=== PATIENT | male | born 1960 | race Caucasian/White ===

== ENCOUNTER 2017-08-30 12:08 | Day surgery (SDC) | payer MEDICARE ==
[2017-08-29 14:33] VITALS: BMI 27.8
[2017-08-30] MEDS ORDERED: PROPOFOL 200 MG/20 ML VIAL ONE (13:08)
[2017-08-30] MEDS ORDERED: Dexamethasone 20 MG/5 ML VIAL ONE (13:08)
[2017-08-30] MEDS ORDERED: Lidocaine 1% PF 5 ML VIAL ONE (13:08)
--- NOTE | 2017-08-30 15:33 | MRI ---
MRI LUMBAR SPINE WITHOUT CONTRAST: COMPARISON: 07/20/16. HISTORY: Bilateral leg and chronic back pain. TECHNIQUE: Multiplanar, multisequence MR images were obtained of the lumbar spine without contrast. FINDINGS: Generalized disk desiccation is seen in the lumbar spine. The conus medullaris terminates normally a t L1. The prevertebral and paraspinal soft tissues are unremarkable. T12-L1: Unremarkable. L1-2: Unremarkable. L2-3: A minimal generalized concentric disk bulge is seen. Mild bilateral posterior facet arthrosis . No central canal stenosis. Mild bilateral neural foraminal stenosis. L3-4: A minimal generalized concentric disk bulge is seen. Mild bilateral posterior disk arthrosis. No central canal stenosis. Mild bilateral neural foraminal stenosis. L4-5: Small disk-osteophyte complex is seen. Mild bilateral posterior facet arthrosis. No central canal stenosis. Moderate bilateral neural foraminal stenosis. L5-S1: Unremarkable. IMPRESSION: Degenerative changes of the lumbar spine as above. POS: CESARIO
== END 2017-08-30 16:30 | disposition home or self-care (01) ==
LOC: SDC/OP 12:08
PROVIDERS: ATTEND Anesthesiology Pain Medicine
DX: M47.27 Other spondylosis with radiculopathy, lumbosacral region (principal); M62.830 Muscle spasm of back; K21.9 Gastro-esophageal reflux disease without esophagitis; Z86.73 Personal history of transient ischemic attack (TIA), and cerebral infarction without residual deficits; Z79.899 Other long term (current) drug therapy
CPT/HCPCS: 72148; J1100; J2001; J2704

== ENCOUNTER 2019-03-06 12:38 | Inpatient (IN) | payer MEDICARE ==
[2019-03-06] MEDS ORDERED: Fentanyl 100 MCG/2 ML VIAL ONE ×4 (13:38→21:59)
--- NOTE | 2019-03-06 14:18 | HP ---
HISTORY OF PRESENT ILLNESS: Mr. Stewart is a 58-year-old man, who presented to [facility] in [place] with a 4-month history of right upper quadrant abdominal pain. He describes the pain as sharp, exacerbated by eating and associated with some nausea. The pain is usually rated at 5/10 to 7/10. Over the last one week, however, the pain has intensified and became more frequent now associated with abdominal bloating, frequent nausea and 2 bouts of nonbilious emesis. The patient denies any fevers or chills. The pain is now rated at 10/10. He denies any change in his bowel habits. 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 PAST SURGICAL HISTORY: Denies any previous surgeries. SOCIAL HISTORY: He is , lives at home with his . He admits to occasional intake of ethanol in moderate amounts. He smokes half pack of cigarettes per day and has done so for over 30 years. He denies any illicit drug abuse. CURRENT MEDICATION: Includes hydrocodone 10 mg p.o. q.6 hours p.r.n. pain. ALLERGIES: THE PATIENT DENIES ANY KNOWN DRUG ALLERGIES. FAMILY HISTORY: Noncontributory for this patient's age. REVIEW OF SYSTEMS: Ten-point review of systems essentially unremarkable except as stated in past medical history and chief complaint. PHYSICAL EXAMINATION: GENERAL: This reveals a 58-year-old normally developed man, who is otherwise coherent and interactive and appears stated age. The patient is alert and oriented x3 appears to be in moderate acute distress secondary to right upper quadrant abdominal pain. VITAL SIGNS: Includes blood pressure 159/68, pulse is 50, respiratory rate is 16, temperature is 98.1 degrees Fahrenheit, oxygen saturation is 99% on room air. HEENT: Reveals normocephalic and atraumatic. His pupils are equal, round, reactive to light and accommodation. Extraocular muscles are intact bilaterally. No scleral icterus is present. Oral mucosa is pink and moist. No lesions are noted. NECK: Supple. No palpable lymphadenopathy or thyromegaly present. HEART: Reveals regular rate and rhythm. No murmurs or gallops auscultated. LUNGS: Clear to auscultation bilaterally. Breathing, regular and nonlabored. ABDOMEN: Soft and nondistended. He has right upper quadrant tenderness to palpation. He has a positive Cardona sign. Liver and spleen otherwise nonpalpable below costal margin. EXTREMITIES: Reveal 2+ radial and pedal pulses bilaterally. No ankle edema is present. NEUROLOGIC: Reveals no focal deficits present. LABORATORY FINDINGS: Today from [place] includes metabolic profile; sodium 135, potassium 4.3, chloride is 102, bicarb is 28, BUN is 6, creatinine is 1.03, glucose is 90, lactic acid is 1.1, total bilirubin 0.6, AST and ALT normal at 19 and 20 respectively. Alkaline phosphatase is also normal at 76. Serum lipase normal at 18 units/L. CBC with 6500 white blood cells. Hemoglobin and hematocrit 16.7 and 47.6 respectively. Platelet count is 256,000. I have personally reviewed the abdominal ultrasound obtained today, which is remarkable for distended markedly thick walled gallbladder with gallbladder wall which measures at 7 mm. There are multiple intraluminal gallstones. There is small pericholecystic fluid present. Common bile duct is markedly dilated for this patient's age at 10 mm in diameter. IMPRESSION: 1. Frjja-[id number] cholecystitis with cholelithiasis. 2. Probable choledocholithiasis. RECOMMENDATIONS: Laparoscopic cholecystectomy with intraoperative cholangiogram. Above findings and recommendations been discussed with the patient and his at bedside. I have advised the patient of the risks and benefits of the proposed surgery to include, but not limited to bleeding, infection, injury to bile duct or surrounding structures. This information provided to the patient in the presence of his nurse. The patient indicates understanding of information given. I have answered all his questions. The patient has granted consent for his admission and surgical intervention. Job ID: [id number]
[2019-03-06] MEDS ORDERED: Morphine 4 MG/ML VIAL ONE (17:46)
[2019-03-06] MEDS ORDERED: Piperacillin/Tazobactam 3.375 GM VIAL ONE (19:39)
[2019-03-06] MEDS ORDERED: Sodium Chloride 0.9% 100 ML ONE (19:39)
[2019-03-06] MEDS ORDERED: Iothalamate Meglumine 60% 50 ML VIAL FS ONE (20:06)
[2019-03-06] MEDS ORDERED: Bupivacaine/Epinephrine 0.25% 30 ML VIAL ONE (20:06)
[2019-03-06] MEDS ORDERED: Morphine 2 MG/ML SYRINGE ONE (20:12)
[2019-03-06] MEDS ORDERED: Midazolam HCl 2 mg/2 ml Vial ONE (20:43)
--- NOTE | 2019-03-06 22:06 | RAD ---
Intraoperative cholangiogram CLINICAL HISTORY: ERCP FINDINGS: ERCP fluoroscopic imaging, intraoperative, performed which reveals contrast opacified commo n duct and partially imaged intrapelvic biliary ductal branches. No persistent focal filling defect is identified. Contrast is seen within bowel. IMPRESSION: Intraoperative imaging performed during ERCP. Correlate with intraoperative assessment. Transcribed Date/Time: 03/06/2019 10:13 PM
[2019-03-06] MEDS ORDERED: HYDROmorphone 2 MG/ML VIAL ONE (22:43)
[2019-03-06] MEDS ORDERED: Morphine 2 MG/ML SYRINGE SLOW IVP PRN (22:47)
[2019-03-06] MEDS ORDERED: Morphine 4 MG/ML VIAL SLOW IVP PRN (22:48)
[2019-03-06] MEDS ORDERED: HYDROcodone/Acetaminophen 10/325 mg Tablet PO PRN ×2 (22:49→22:50)
[2019-03-06] MEDS ORDERED: Ondansetron PF 4 MG/2 ML Vial SLOW IVP PRN (22:50)
[2019-03-06] MEDS ORDERED: Ondansetron PF 4 MG/2 ML Vial IVP PRN (23:14)
[2019-03-06] MEDS ORDERED: Promethazine HCl 25 MG/ML VIAL IM PRN (23:14)
[2019-03-06] MEDS ORDERED: Naloxone HCl 0.4 mg/ml Vial IV PRN (23:14)
[2019-03-06] MEDS ORDERED: diphenhydrAMINE 25 MG CAP PO PRN (23:14)
[2019-03-06] MEDS ORDERED: Zolpidem Tartrate 5 MG TAB PO PRN (23:14)
[2019-03-06] MEDS ORDERED: diphenhydrAMINE 50 MG/ML VIAL IM/IV PRN (23:14)
[2019-03-06] MEDS ORDERED: HYDROmorphone 10 mg/100 ml CADD IV PRN (23:14)
[2019-03-06] MEDS ORDERED: HYDROmorphone 0.5 MG/0.5 ML SYRINGE ONE ×2 (23:36→23:55)
[2019-03-07 01:24] VITALS: BMI 26.2
[2019-03-07] MEDS: Piperacillin/Tazobactam 3.375 GM in Sodium Chloride 0.9% 100 ML IVPB SCH ×2 (02:23→08:32)
[2019-03-07] MEDS: Sodium Chloride 0.9% 1,000 ML IV SCH ×2 (02:24→08:38)
[2019-03-07] MEDS ORDERED: Acetaminophen 1,000 MG in Premix Bag 1 BAG IVPB SCH (05:45)
[2019-03-07] MEDS ORDERED: Ketorolac Tromethamine 30 MG/ML VIAL IVP SCH (05:45)
[2019-03-07 05:46] LABS: ALT (SGPT) 18 U/L (8-55); AST (SGOT) 25 U/L (5-34); Albumin 3.8 g/dL (3.5-5.0); Alkaline Phosphatase 62 U/L (40-110); Anion Gap 15 mmol/L (10-20); BUN (Urea Nitrogen) 8 mg/dL (8.4-25.7); Bilirubin, Total 0.6 mg/dL (0.2-1.2); Calc. Creatinine Clearance 95 mL/min (70-130); Calcium 8.6 mg/dL (7.8-10.44); Carbon Dioxide 22 mmol/L (22-29); Chloride 106 mmol/L (98-107); Estimated GFR-MDRD 78; Globulin 2.6 g/dL (2.4-3.5); Glucose 81 mg/dL (70-105); Potassium 4.7 mmol/L (3.5-5.1); Protein, Total 6.4 g/dL (6.0-8.3); Sodium 138 mmol/L (136-145)
[2019-03-07 05:49] LABS: #Lymphocytes 2.7 thou/uL (1.20-3.40); #Monocytes 0.5 thou/uL (0.11-0.59); %Basophils 0.2 % (0.0-1.0); %Eosinophils 0.2 % (0.0-10.0); %Lymphocytes 29.2 % (21.0-51.0); %Monocytes 5.5 % (0.0-10.0); %Neutrophils 64.9 % (42.0-75.0); Hemoglobin 14.9 g/dL (14.0-18.0); MDiff Complete? YES; Macrocytosis SLIGHT = 6-15 cells (100X) (0-5/hpf); Mean Corpuscular HGB CONC 34.7 g/dL (32.0-36.0); Mean Corpuscular Hemoglobin 36.9 pg (27.0-31.0); Mean Platelet Volume 7.1 fL (7.4-10.4); Platelet Count 231 thou/uL (130-400); RBC Distribution Width 12.6 % (11.5-14.5); Red Blood Cell (RBC) Count 4.04 mill/uL (4.70-6.10); White Blood Cell (WBC) Count 9.3 thou/uL (4.8-10.8)
[2019-03-07 08:03] VITALS: TEMP 98.2
[2019-03-07] MEDS ORDERED: Prevnar 13-Val Conj/PF 0.5 ML SYRINGE IM ONE (09:00)
[2019-03-07] MEDS ORDERED: FLU VACC QS2019-20(6MOS UP)/PF 60 MCG/0.5 ML SYRINGE IM ONE (09:00)
[2019-03-07 11:19] VITALS: BP 168/86
--- NOTE | 2019-03-08 12:26 | PDOC.OP ---
Operative Note - Operative Note Operative Note: DATE OF PROCEDURE: PROCEDURES: Laparoscopic cholecystectomy with intraoperative cholangiogram. SURGEON: Cece Dunn M.D. RETAIL STORE ASSOCIATE: Kolby Espana MS 3 PREOPERATIVE DIAGNOSIS: Cholelithiasis and cholecystitis POSTOPERATIVE DIAGNOSIS: Cholelithiasis and cholecystitis FINDINGS: Very thickened chronically dilated white walled gallbladder with multiple stones. Small cystic duct connecting to a dilated common bile duct. Normal intraoperative cholangiogram without lucency or obstruction. HISTORY: Patient with signs and symptoms of biliary colic. Laparoscopic cholecystectomy was recommended for symptomatic relief and prevention of future episodes. Intraoperative cholangiogram was also recommended due to dilated common bile duct on ultrasound. PROCEDURE: After informed consent was obtained and appropriate preoperative antibiotics were administered, the patient was taken to the operating room and placed in the supine position and general endotracheal anesthesia was administered. The stomach was decompressed with an OG tube and the abdomen was prepped and draped in standard sterile fashion. Local anesthesia was infused to the skin and subcutaneous tissues at the umbilical level. A transverse skin incision was made. The fascia was elevated and a Veress needle was placed into the abdominal cavity without difficulty. Opening pressure was less than 5 and carbon dioxide gas easily insufflated to an intra-abdominal pressure of 15, which the patient tolerated well. The Veress needle was withdrawn and a Powell port advanced under direct vision. The abdominal cavity was carefully examined. There was no evidence of Veress needle or of trocar injury. Local anesthesia was infused to the skin and subcutaneous tissues at the epigastric, right upper quadrant, and right lateral abdominal sites and trocars were placed under direct vision of the laparoscope. The fundus of the gallbladder was grasped and retracted superiorly with some difficulty due to the very thickened nature of the gallbladder wall. The infundibulum was grasped and retracted laterally. The serosa was stripped inferiorly at the level of the neck of the gallbladder exposing the cystic duct and artery which were traced clearly to their insertion in the gallbladder. These were dissected free circumferentially and the cystic duct was clipped at the level of the neck of the gallbladder. An incision was made in the cystic duct inferior to the clip and the cystic duct was palpated with no stones palpable. Clear bile was seen to flow from the cystic duct incision. A cholangiogram catheter was introduced and placed into the cystic duct and secured with a clip. A cholangiogram was obtained which showed an adequate length of cystic duct. There was normal filling of the common bile duct with free flow of contrast into the duodenum. There was normal retrograde flow into the common hepatic duct beyond the level of the bifurcation without filling defects. The cholangiogram catheter was removed and the cystic duct clipped below the incision in the cystic duct. The cystic duct was divided between these clips and the previously placed clip. The cystic artery was dissected free, clipped and divided between the clips. The gallbladder was then dissected free of the gallbladder bed using hook electrocautery. Prior to complete removal of the gallbladder from the gallbladder bed, the area of the cystic duct and artery stumps was examined. The clips were in good position completely across these structures and there was no bleeding and no leakage of bile. The gallbladder was then placed into an EndoCatch bag and drawn out through the epigastric incision, after crushing and removing multiple stones. Even after removal of the stones, the gallbladder wall was so thick that the skin incision had to be extended somewhat to allow removal. The epigastric trocar was replaced and the operative site easily irrigated to clear. There was no significant bleeding or spillage of bile. The epigastric trocar was removed and the fascia closed under direct laparoscopic vision with a 0 Vicryl suture on a GraNee needle in a [id number] manner with excellent technical result. The right upper quadrant and right lateral abdominal trocars were removed and hemostasis verified. Carbon dioxide gas was allowed to desufflate through the umbilical trocar which was then removed. The skin incisions were closed with 4-0 subcuticular Monocryl sutures and Dermabond dressings were placed. The patient was extubated and taken to the recovery room in good condition. There were no complications. ESTIMATED BLOOD LOSS: Minimal. SPECIMEN : Gallbladder and contents.
--- NOTE | 2019-03-08 17:34 | OP ---
DATE OF PROCEDURE: 03/06/2019 PREOPERATIVE DIAGNOSES: 1. Acute cholecystitis and cholelithiasis. OPERATION PERFORMED: Laparoscopic cholecystectomy with intraoperative cholangiogram. ANESTHESIA: General endotracheal. ESTIMATED BLOOD LOSS: Less than 20 mL. COUNTS: Sponge and instrument counts were verified as correct x2. COMPLICATIONS: None apparent at the time of operation. INDICATIONS FOR OPERATION: A 58-year-old man presented with recurrent epigastric and right upper quadrant abdominal pain. Clinical and radiographic examination were consistent with acute cholecystitis and cholelithiasis. Dilated common bile duct was also diagnosed. The patient was experiencing resolving abdominal pain. Serum lipase was normal. The patient was brought to the operating room for laparoscopic cholecystectomy with intraoperative cholangiogram. The findings are consistent with markedly dilated gallbladder in the usual anatomic location, partially encased by omental adhesions. Cholangiography also revealed normal ductal anatomy with no filling defects. DESCRIPTION OF PROCEDURE: Informed consent was obtained from the patient and was brought to the operating room and placed in supine position. Following general anesthesia, abdomen was sterilely prepped and draped in usual fashion. The skin below the umbilicus was infiltrated with 0.25% Marcaine with epinephrine. A small curvilinear infraumbilical incision was made using an 11 scalpel. Umbilical stalk was grasped with Scar and elevated. Veress needle was inserted through the incision and placed in the peritoneal cavity, through which the abdomen was insufflated with 3 L of CO2 gas. Intraabdominal pressure noted at 1 mmHg. Following abdominal insufflation, Veress needle was removed and a 5-mm trocar introduced using a Visiport under laparoscopy. Laparoscopy confirmed proper placement. No injuries to underlying structures. Additionally, laparoscopy reveals the right upper quadrant partially obscured by omental adhesions. Under direct laparoscopy, 12-mm epigastric and two 5-mm right lateral subcostal ports were placed after the overlying skin were infiltrated with 0.25% Marcaine with epinephrine and appropriate incision was made. The patient was placed in a reverse Trendelenburg position, rotated to his left. I introduced a Prestige grasper through the right lateral subcostal port, grasping the fundus of the gallbladder, which was elevated cephalad. Omental adhesions were taken down from the remainder of the gallbladder. Second Prestige grasper was introduced through the right medial subcostal port, grasping the Gene's pouch, which was retracted laterally. The cystic duct was carefully dissected free from surrounding structures. I applied one clip at the junction of the cystic duct and gallbladder. A cystotomy was made proximal to securing clip using Endo Shear. Cholangiocatheter introduced through the right upper quadrant and was inserted into the cystic ductal lumen and secured with a single clip. Using Conray contrast, cholangiogram was achieved under fluoroscopy, revealing no filling defects. Following the normal cholangiogram, securing clip was removed and the cystic duct was divided between clips, applying 2 clips proximally. Cystic artery dissected free from surrounding structures and divided between clips in a similar fashion. The gallbladder itself was removed from the liver bed using cautery. The gallbladder was delivered of the abdominal cavity using an EndoCatch. Operative site was inspected for good hemostasis. Finding no other pathology, laparoscopy was terminated. Fascia of the epigastric port closed using 0 Vicryl suture and Endo Closure device on the laparoscopy. The abdomen was desufflated. All ports and instruments removed and accounted for. Skin incision was closed using 4-0 Monocryl suture in subcuticular fashion. Dermabond was applied over incisional closure. The patient tolerated this operation without any apparent complication and was returned to recovery room in satisfactory condition. Job ID: [id number] [facility]
--- NOTE | 2019-03-09 08:43 | PQF ---
KRANTHI EMERY [id number] CLINICAL DOCUMENTATION CLARIFICATION FORM: POST DISCHARGE Addendum to original discharge summary date: ____ Late entry note date: __ DATE:03/09/2019 ATTN:KRANTHI FARRIS Please exercise your independent, professional judgment in responding to the clarification form. Clinical indicators are provided on the bottom of this form for your review Please check appropriate box(s): [ ] Gallstone pancreatitis is treated during this admission [ ] Gallstone pancreatitis is already treated before the admission [ ] Other diagnosis [ x ] Unable to determine For continuity of documentation, please document condition throughout progress notes and discharge summary. Thank You. CLINICAL INDICATORS - SIGNS / SYMPTOMS / LABS Right upper quadrant abdominal pain-Documented in H&P on 03/06 by kranthi Farris DO Nausea-Documented in H&P on 03/06 by kranthi Farris DO Serum lipase normal at 18 units/L-Documented in H&P on 03/06 by kranthi Farris DO [id number] cholecystitis with cholelithiasis-Documented in H&P on 03/06 by kranthi Farris DO Resolved gallstone pancreatitis-Documented in OP note on 03/06 by kranthi Farris DO Gallstone pancreatitis was also diagnosed.The patient was experiencing resolving abdominal pain-kranthi Farris DO [employer]ISK [employer]CTORS Cholelithiasis and cholecystitis-Documented in OP note on 03/07 by Cece nelson MD TREATMENT: Laparoscopic cholecystectomy with intraoperative cholangiogram-Documented in OP note on 03/07 by Cece nelson MD Morphine 4mg IV-Documented in Medication snapshot on 03/06 [employer] Win[employer] (This form is maintained as a part of the permanent medical record) 2014 [employer]. All Rights Reserved [email or web address] [not provided] CHERYLED
--- NOTE | 2019-03-12 22:46 | EKG ---
Test Reason : Blood Pressure : / mmHG Vent. Rate : 045 BPM Atrial Rate : 045 BPM P-R Int : 166 ms QRS Dur : 086 ms QT Int : 474 ms P-R-T Axes : 058 008 058 degrees QTc Int : 410 ms Sinus bradycardia Otherwise normal ECG When compared with ECG of 20-JUL-2016 16:11, No significant change was found Confirmed by SONALI ALBA M.D. ([id number]) on 03/12/2019 10:46:46 PM Referred By: JOSH Confirmed By:SONALI ALBA M.D.
== END 2019-03-07 13:16 | disposition home or self-care (01) | DRG 419 ==
LOC: ERS 12:38 → SDC 19:05 → SURG A 22:35
PROVIDERS: ADMIT Surgery; ATTEND Surgery
PROC: 0FT44ZZ Resection of Gallbladder, Percutaneous Endoscopic Approach (ICD-10-PCS; principal; 2019-03-07)
PROC: BF131ZZ Fluoroscopy of Gallbladder and Bile Ducts using Low Osmolar Contrast (ICD-10-PCS; 2019-03-07)
DX: K80.12 Calculus of gallbladder with acute and chronic cholecystitis without obstruction (principal); K82.8 Other specified diseases of gallbladder; M47.9 Spondylosis, unspecified; F17.210 Nicotine dependence, cigarettes, uncomplicated; Z86.73 Personal history of transient ischemic attack (TIA), and cerebral infarction without residual deficits
CPT/HCPCS: 36415; 47532; 80053; 85025; 88304; 93005; 93010; 96374; 96375; 96376; J0131; J1170; J1610; J1885; J2250; J2270; J2543; J3010; J3490

== ENCOUNTER 2019-05-21 12:07 | Day surgery (SDC) | payer MEDICARE ==
[2019-05-18 10:03] VITALS: BMI 25.8
[~2019-05-21 12:07] MED LIST: Lidocaine 1% PF 5 ML VIAL ONE; PHENYLEPHRINE-NS 100 MCG/ML 10 ML SYRINGE ONE; PROPOFOL 200 MG/20 ML VIAL ONE
[2019-05-21] MEDS ORDERED: Midazolam HCl 2 mg/2 ml Vial ONE (13:51)
--- NOTE | 2019-05-21 14:54 | MRI ---
MRI Lumbar Spine Noncontrast: HISTORY: Chronic lower back pain. History of nerve ablations. COMPARISON: 08/30/2017 FINDINGS: Tiny 5 mm increased T2-weighted signal intensity focus is seen in the midportion left kidney which is too small to characterize but statistically likely represents a very tiny cyst. Conus medullaris is normal in morphology and terminates at the L1 level. Paravertebral soft tissues have a normal MRI appearance. L1-2: There is no disc bulge or disc herniation. Central spinal canal and neural foramina are patent. L2-3: Minimal disc osteophyte complex and facet hypertrophic changes are noted. There is no significa nt central canal or neural foraminal narrowing. L3-4: Facet hypertrophic changes are noted with a minimal disc osteophyte complex present. Mild right -sided neural foraminal narrowing is present. The left neural foramen and central canal are patent. There is mild encroachment on the exited right L3 III nerve root laterally due to disc bulge. L4-5: Minimal disc osteophyte complex and facet hypertrophic changes are noted. Mild bilateral neural foraminal narrowing is present greater on the right. The central canal is patent. L5-S1: There is no disc bulge or disc herniation. Central spinal canal and neural foramina are patent . There are facet hypertrophic changes noted. IMPRESSION: Mild degenerative changes in lumbar spine without high-grade central canal or neural foraminal narrow ing at any level. MRI lumbar spine is overall stable compared to the prior study in 2018. There is encroachment on the right L3 nerve root laterally due to lateral disc bulge.
== END 2019-05-21 15:45 | disposition home or self-care (01) ==
LOC: SDC/OP 12:07
PROVIDERS: ATTEND Anesthesiology Pain Medicine
DX: M47.816 Spondylosis without myelopathy or radiculopathy, lumbar region (principal)
CPT/HCPCS: 72148; J2001; J2250; J2704

== ENCOUNTER 2020-05-09 14:08 | Outpatient (CLI) | payer MEDICARE ==
[2020-05-10 02:09] LABS: SARS-CoV-2 MS2 Positive; SARS-CoV-2 N Gene Negative; SARS-CoV-2 S Gene Negative; SARS-CoV-2 by NAA Not Detected (NotDetected); SARS-CoV-2 orf1ab Negative
== END 2020-05-09 14:09 | disposition home or self-care (01) ==
LOC: LABBT 14:08
PROVIDERS: ATTEND Anesthesiology
DX: Z01.812 Encounter for preprocedural laboratory examination (principal); Z20.828 Contact with and (suspected) exposure to other viral communicable diseases
CPT/HCPCS: 87635; U0003

== ENCOUNTER 2020-05-12 11:04 | Day surgery (SDC) | payer MEDICARE, MEDICAID ==
[2020-05-09 10:53] VITALS: BMI 25.8
[~2020-05-12 11:04] MED LIST changes: -PHENYLEPHRINE-NS 100 MCG/ML 10 ML SYRINGE ONE; -PROPOFOL 200 MG/20 ML VIAL ONE
[2020-05-12] MEDS ORDERED: PROPOFOL 60 ML ONE (11:56)
--- NOTE | 2020-05-12 12:38 | MRI ---
EXAM: MRI Lumbar Spine WO Con PROVIDED CLINICAL HISTORY: Spondylosis COMPARISON: None FINDINGS: 5 lumbar vertebral bodies are assumed. Lumbar alignment appears normal. Vertebral body heights appear preserved. Mild diffuse disc desiccation without loss of disc space height. The conus medullaris is normal in signal and terminates at an appropriate level. The visualized extraspinal soft tissues a ppear unremarkable. L1-L2: No significant canal or foraminal narrowing apparent. L2-L3: No significant canal or foraminal narrowing apparent. L3-L4: Broad disc bulge and bilateral mild facet arthrosis. Mild bilateral foraminal narrowing. No significa nt canal stenosis apparent. L4-L5: Broad-based disc bulge and bilateral facet arthrosis. There is no significant canal stenosis apparent . There is mild left and mild-moderate right foraminal narrowing. L5-S1: Bilateral facet arthrosis. No significant canal or foraminal narrowing apparent. IMPRESSION: Lumbar disc and facet degenerative change as described.
== END 2020-05-12 13:25 | disposition home or self-care (01) ==
LOC: MRI 11:04
PROVIDERS: ATTEND Anesthesiology
DX: M47.27 Other spondylosis with radiculopathy, lumbosacral region (principal); M47.816 Spondylosis without myelopathy or radiculopathy, lumbar region; M51.36 Other intervertebral disc degeneration, lumbar region; M99.33 Osseous stenosis of neural canal of lumbar region; G89.4 Chronic pain syndrome; F41.9 Anxiety disorder, unspecified; K21.9 Gastro-esophageal reflux disease without esophagitis; G47.00 Insomnia, unspecified; M19.90 Unspecified osteoarthritis, unspecified site; M79.7 Fibromyalgia; F17.210 Nicotine dependence, cigarettes, uncomplicated; Z86.73 Personal history of transient ischemic attack (TIA), and cerebral infarction without residual deficits; Z79.891 Long term (current) use of opiate analgesic
CPT/HCPCS: 72148; J2704

== ENCOUNTER 2020-11-28 13:58 | Outpatient (CLI) | payer MEDICARE, MEDICAID ==
[2020-11-28 16:38] LABS: #Basophils 0.1 10x3/uL (0.0-0.2); #Monocytes 0.6 10x3/uL (0.0-1.1); #Neutrophils 3.6 10x3/uL (1.5-8.4); %Basophils 0.9 % (0.0-2.0); %Monocytes 6.8 % (0.0-10.0); %Neutrophils 45.1 % (40.0-75.0); Hemoglobin 13.8 g/dL (13.5-17.5); Mean Corpuscular HGB CONC 34.4 g/dL (32.0-36.0); Mean Corpuscular Hemoglobin 34.3 pg (27.0-33.0); Mean Corpuscular Volume 99.8 fl (81.2-95.1); Mean Platelet Volume 9.5 fl (7.4-10.4); Platelet Count 306 10x3/uL (150-450); RBC Distribution Width 13.7 % (11.5-14.5); Red Blood Cell (RBC) Count 4.02 10x6/uL (4.32-5.72); White Blood Cell (WBC) Count 8.1 10x3/uL (3.5-10.5)
[2020-11-28 16:56] LABS: Anion Gap 14 mmol/L (10-20); BUN (Urea Nitrogen) 10 mg/dL (8.4-25.7); Calc. Creatinine Clearance 0 mL/min (70-130); Calcium 9.2 mg/dL (7.8-10.44); Carbon Dioxide 25 mmol/L (22-29); Chloride 103 mmol/L (98-107); Glucose 86 mg/dL (70-105); Potassium 4.5 mmol/L (3.5-5.1); Sodium 137 mmol/L (136-145)
== END 2020-11-28 13:59 | disposition home or self-care (01) ==
LOC: LABBT 13:58
PROVIDERS: ATTEND Neurological Surgery
DX: Z01.818 Encounter for other preprocedural examination (principal); M54.16 Radiculopathy, lumbar region
CPT/HCPCS: 80048; 85025; 93005; 93010

== ENCOUNTER 2021-02-17 12:43 | Outpatient (CLI) | payer MEDICARE, MEDICAID | END 2021-02-17 12:44 | disposition home or self-care (01) | LOC: TBSIIMAG 12:43 | PROVIDERS: ATTEND Neurological Surgery | DX: M54.5 Low back pain (principal); Z98.890 Other specified postprocedural states | CPT/HCPCS: 72100 ==

== ENCOUNTER 2021-02-25 13:15 | Outpatient (CLI) | payer MEDICARE, MEDICAID ==
[2021-02-26 01:46] LABS: SARS-CoV-2 PCR by NAA Not Detected (NotDetected)
== END 2021-02-25 13:16 | disposition home or self-care (01) ==
LOC: LABBT 13:15
PROVIDERS: ATTEND Neurological Surgery
DX: Z01.812 Encounter for preprocedural laboratory examination (principal); M54.16 Radiculopathy, lumbar region; Z20.822 Contact with and (suspected) exposure to COVID-19
CPT/HCPCS: U0003; U0005

== ENCOUNTER 2021-03-02 11:37 | Day surgery (SDC) | payer MEDICARE, MEDICAID ==
[2021-03-02] MEDS ORDERED: Fentanyl 100 MCG/2 ML VIAL ONE ×2 (12:59→14:58)
[2021-03-02] MEDS ORDERED: Midazolam HCl 2 mg/2 ml Vial ONE (12:59)
[2021-03-02 13:10] LABS: Calc. Creatinine Clearance 0 mL/min (70-130)
[2021-03-02] MEDS ORDERED: PROPOFOL 200 MG/20 ML VIAL ONE (13:45)
[2021-03-02] MEDS ORDERED: Glycopyrrolate 0.2 MG/ML 5 ML SYRINGE ONE (13:45)
[2021-03-02] MEDS ORDERED: Rocuronium Bromide 10 MG/ML (10ML VIAL) ONE (13:45)
[2021-03-02] MEDS ORDERED: Dexamethasone 20 MG/5 ML VIAL ONE (13:45)
[2021-03-02] MEDS ORDERED: Ondansetron PF 4 MG/2 ML Vial ONE (13:45)
[2021-03-02] MEDS ORDERED: Ketorolac Tromethamine 30 MG/ML VIAL ONE (13:45)
[2021-03-02] MEDS ORDERED: Lidocaine 1% PF 5 ML VIAL ONE (13:45)
== END 2021-03-02 16:30 | disposition home or self-care (01) ==
LOC: RAD 11:37
PROVIDERS: ATTEND Neurological Surgery
PROC: B02B1ZZ Computerized Tomography (CT Scan) of Spinal Cord using Low Osmolar Contrast (ICD-10-PCS; principal; 2021-03-02)
DX: M47.26 Other spondylosis with radiculopathy, lumbar region (principal); M51.16 Intervertebral disc disorders with radiculopathy, lumbar region; T84.226A Displacement of internal fixation device of vertebrae, initial encounter; M48.061 Spinal stenosis, lumbar region without neurogenic claudication; M47.817 Spondylosis without myelopathy or radiculopathy, lumbosacral region; M48.07 Spinal stenosis, lumbosacral region; Z98.1 Arthrodesis status
CPT/HCPCS: 36415; 62304; 72132; 82565; J1100; J1885; J2250; J2405; J2704; J3010

== ENCOUNTER 2021-03-27 13:54 | Outpatient (CLI) | payer MEDICARE, MEDICAID ==
[2021-03-27 15:54] LABS: Hemoglobin 15.5 g/dL (13.5-17.5); Mean Corpuscular HGB CONC 34.8 g/dL (32.0-36.0); Mean Corpuscular Hemoglobin 34.6 pg (27.0-33.0); Mean Corpuscular Volume 99.6 fl (81.2-95.1); Mean Platelet Volume 9.2 fl (7.4-10.4); Platelet Count 327 10x3/uL (150-450); RBC Distribution Width 14.6 % (11.5-14.5); Red Blood Cell (RBC) Count 4.48 10x6/uL (4.32-5.72); White Blood Cell (WBC) Count 8.3 10x3/uL (3.5-10.5)
[2021-03-27 16:15] LABS: Anion Gap 15 mmol/L (10-20); BUN (Urea Nitrogen) 7 mg/dL (8.4-25.7); Calc. Creatinine Clearance 0 mL/min (70-130); Calcium 9.2 mg/dL (7.8-10.44); Carbon Dioxide 22 mmol/L (22-29); Chloride 103 mmol/L (98-107); Glucose 73 mg/dL (70-105); Potassium 4.4 mmol/L (3.5-5.1); Sodium 136 mmol/L (136-145)
[2021-03-28 00:10] LABS: SARS-CoV-2 PCR by NAA Not Detected (NotDetected)
== END 2021-03-27 13:55 | disposition home or self-care (01) ==
LOC: LABBT 13:54
PROVIDERS: ATTEND Neurological Surgery
DX: Z01.818 Encounter for other preprocedural examination (principal); M54.16 Radiculopathy, lumbar region; Z20.822 Contact with and (suspected) exposure to COVID-19
CPT/HCPCS: 80048; 85027; U0003; U0005; 93005; 93010

== ENCOUNTER 2021-03-30 08:07 | Day surgery (SDC) | payer MEDICARE, MEDICAID ==
[2021-03-27 12:15] VITALS: BMI 25.1
[2021-03-30] MEDS ORDERED: ceFAZolin Sodium (SDC) 2 GM/100 ML BAG ONE (08:28)
[2021-03-30] MEDS ORDERED: Fentanyl 100 MCG/2 ML VIAL ONE ×4 (08:58→14:30)
[2021-03-30] MEDS ORDERED: Midazolam HCl 2 mg/2 ml Vial ONE ×2 (10:14→13:07)
[2021-03-30] MEDS ORDERED: Fentanyl 250 MCG/5 ML VIAL ONE (11:15)
[2021-03-30] MEDS ORDERED: Glycopyrrolate 0.2 MG/ML 5 ML SYRINGE ONE (11:33)
[2021-03-30] MEDS ORDERED: diphenhydrAMINE 50 MG/ML VIAL ONE (11:33)
[2021-03-30] MEDS ORDERED: PHENYLEPHRINE-NS 100 MCG/ML 10 ML SYRINGE ONE (11:33)
[2021-03-30] MEDS ORDERED: Ondansetron PF 4 MG/2 ML Vial ONE (11:33)
[2021-03-30] MEDS ORDERED: PROPOFOL 200 MG/20 ML VIAL ONE (11:33)
[2021-03-30] MEDS ORDERED: Lidocaine 1% PF 5 ML VIAL ONE (11:33)
[2021-03-30] MEDS ORDERED: Rocuronium Bromide 10 MG/ML (10ML VIAL) ONE (11:33)
[2021-03-30] MEDS ORDERED: Labetalol HCl 100 MG/20 ML VIAL ONE (11:33)
[2021-03-30] MEDS ORDERED: Dexamethasone 20 MG/5 ML VIAL ONE (11:33)
[2021-03-30] MEDS ORDERED: hydrALAZINE 20 MG/ML VIAL ONE (13:10)
[2021-03-30] MEDS ORDERED: HYDROmorphone 2 MG/ML VIAL ONE (13:24)
[2021-03-30] MEDS ORDERED: PACU-Morphine 4MG/ML VIAL SLOW IVP PRN (13:43)
[2021-03-30] MEDS ORDERED: Promethazine HCl 25 MG/ML VIAL IM PRN ×2 (13:43→16:15)
[2021-03-30] MEDS ORDERED: Promethazine HCl 25 MG/ML VIAL IVPB PRN (13:43)
[2021-03-30] MEDS ORDERED: Morphine Sulfate 2 MG/ML SYRINGE SLOW IVP PRN (13:43)
[2021-03-30] MEDS ORDERED: Ondansetron HCl/PF 4 MG/2 ML Vial IVP PRN (13:43)
[2021-03-30] MEDS ORDERED: HYDROmorphone 2 MG/ML VIAL SLOW IVP PRN (13:43)
[2021-03-30] MEDS ORDERED: HYDROmorphone 0.5 MG/0.5 ML SYRINGE ONE (14:15)
[2021-03-30] MEDS ORDERED: Promethazine HCl 25 MG/ML VIAL ONE (14:34)
[2021-03-30] MEDS ORDERED: Ondansetron PF 4 MG/2 ML Vial SLOW IVP PRN (16:05)
[2021-03-30] MEDS ORDERED: HYDROcodone/Acetaminophen 10/325 mg Tablet PO PRN (16:15)
[2021-03-30] MEDS ORDERED: Mag-Al 1200 mg/1200 mg/30 ML UDCUP PO PRN (16:15)
[2021-03-30] MEDS ORDERED: traMADol HCl 50 MG TAB PO PRN ×2 (16:15)
[2021-03-30] MEDS ORDERED: Morphine 2 MG/ML VIAL SLOW IVP PRN (16:15)
[2021-03-30] MEDS ORDERED: Promethazine 25 MG TAB PO PRN (16:15)
[2021-03-30] MEDS ORDERED: Milk Of Magnesia 30 ML UDCUP PO PRN (16:15)
[2021-03-30] MEDS ORDERED: diphenhydrAMINE 50 MG/ML VIAL IVP PRN (16:15)
[2021-03-30] MEDS ORDERED: diphenhydrAMINE 25 MG CAP PO PRN (16:15)
[2021-03-30] MEDS ORDERED: Promethazine HCl 12.5 MG SUPP PR PRN (16:15)
[2021-03-30] MEDS ORDERED: Morphine 4 MG/ML VIAL SLOW IVP PRN (16:30)
[2021-03-30] MEDS: HYDROcodone/Acetaminophen 10/325 mg Tablet PO PRN (16:32)
[2021-03-30] MEDS: Morphine 4 MG/ML VIAL SLOW IVP PRN ×4 (16:36→23:34)
[2021-03-30] MEDS: Sodium Chloride 0.9% 1,000 ML IV SCH (16:49)
[2021-03-30] MEDS: tiZANidine HCl 4 MG TAB PO PRN (19:26)
[2021-03-30] MEDS: CEFAZOLIN 2 GM in Sodium Chloride 0.9% 100 ML IVPB SCH (20:47)
[2021-03-31] MEDS: Sodium Chloride 0.9% 1,000 ML IV SCH (03:44)
[2021-03-31] MEDS: Morphine 4 MG/ML VIAL SLOW IVP PRN ×3 (03:45→07:32)
[2021-03-31] MEDS: CEFAZOLIN 2 GM in Sodium Chloride 0.9% 100 ML IVPB SCH (04:05)
[2021-03-31] MEDS: tiZANidine HCl 4 MG TAB PO PRN (05:34)
[2021-03-31] MEDS ORDERED: Tamsulosin HCl 0.4 MG CAP PO SCH (06:00)
[2021-03-31] MEDS ORDERED: Mag-Al 1200 mg/1200 mg/30 ML UDCUP PO SCH (06:30)
[2021-03-31 08:01] VITALS: BP 116/65; TEMP 98.9
[2021-03-31] MEDS: HYDROcodone/Acetaminophen 10/325 mg Tablet PO PRN (09:00)
[2021-03-31] MEDS ORDERED: FLU VACC QS2021-22(6MOS UP)/PF 60 MCG/0.5 ML SYRINGE IM ONE (09:00)
== END 2021-03-31 09:47 | disposition home or self-care (01) ==
LOC: SDC 08:07 → T4-A 13:57 → SDC 03-31 09:47
PROVIDERS: ATTEND Neurological Surgery
PROC: 0QJY0ZZ Inspection of Lower Bone, Open Approach (ICD-10-PCS; principal; 2021-03-30)
PROC: 0SG10K1 Fusion of 2 or more Lumbar Vertebral Joints with Nonautologous Tissue Substitute, Posterior Approach, Posterior Column, Open Approach (ICD-10-PCS; 2021-03-30)
DX: M54.16 Radiculopathy, lumbar region (principal); T84.226A Displacement of internal fixation device of vertebrae, initial encounter; F17.200 Nicotine dependence, unspecified, uncomplicated; Z79.899 Other long term (current) drug therapy; Y79.1 Therapeutic (nonsurgical) and rehabilitative orthopedic devices associated with adverse incidents
CPT/HCPCS: 20930; 22612; 22614; 22830; 22842; 76000; C1713 ×3; J0360; J0690; J1100; J1170; J1200; J2250; J2270; J2405; J2550; J2704; J3010; J3370; J3490; J7050

== ENCOUNTER 2021-04-14 10:27 | Outpatient (CLI) | payer MEDICARE, MEDICAID | END 2021-04-14 10:28 | disposition home or self-care (01) | LOC: TBSIIMAG 10:27 | PROVIDERS: ATTEND Neurological Surgery | DX: M47.26 Other spondylosis with radiculopathy, lumbar region (principal); Z98.890 Other specified postprocedural states | CPT/HCPCS: 72100 ==

== ENCOUNTER 2021-06-15 13:24 | Day surgery (SDC) | payer MEDICARE, MEDICAID ==
[2021-06-11 09:53] VITALS: BMI 26.4
[2021-06-15] MEDS ORDERED: PROPOFOL 200 MG/20 ML VIAL ONE (16:30)
== END 2021-06-15 18:05 | disposition home or self-care (01) ==
LOC: MRI 13:24
PROVIDERS: ATTEND Orthopaedic Surgery Orthopaedic Surgery of the Spine
DX: M51.16 Intervertebral disc disorders with radiculopathy, lumbar region (principal); M48.061 Spinal stenosis, lumbar region without neurogenic claudication; M25.78 Osteophyte, vertebrae; M47.817 Spondylosis without myelopathy or radiculopathy, lumbosacral region; Z87.891 Personal history of nicotine dependence; Z79.891 Long term (current) use of opiate analgesic; Z98.1 Arthrodesis status
CPT/HCPCS: 72148; J2704

== ENCOUNTER 2021-11-27 12:19 | Day surgery (SDC) | payer MEDICARE ==
[2021-11-26 10:41] VITALS: BMI 25.1
[2021-11-27] MEDS ORDERED: PROPOFOL 20 ML ONE (13:13)
[2021-11-27] MEDS ORDERED: ePHEDrine Sulfate 50 MG/10 ML VIAL ONE (13:13)
[2021-11-27] MEDS ORDERED: Fentanyl 100 MCG/2 ML VIAL ONE (13:51)
[2021-11-27] MEDS ORDERED: Midazolam HCl 2 mg/2 ml Vial ONE (13:56)
[2021-11-27] MEDS ORDERED: fentaNYL Citrate/PF 100 MCG/2 ML SYRINGE ONE (13:56)
[2021-11-27] MEDS ORDERED: Propofol 500 MG/50 ML VIAL ONE (13:57)
[2021-11-27] MEDS ORDERED: HYDROcodone/Acetaminophen 10/325 mg Tablet ONE (15:18)
== END 2021-11-27 15:38 | disposition home or self-care (01) ==
LOC: RAD 12:19 → EDSTATUS 13:00 → RAD 15:38
PROVIDERS: ATTEND Orthopaedic Surgery Orthopaedic Surgery of the Spine
DX: M51.16 Intervertebral disc disorders with radiculopathy, lumbar region (principal); I70.0 Atherosclerosis of aorta; Z87.891 Personal history of nicotine dependence; Z98.1 Arthrodesis status
CPT/HCPCS: 62304; 72132; 82565; J2250; J2704; J3010

== ENCOUNTER 2023-05-14 10:41 | Emergency (ER) | payer MEDICARE ==
[2023-05-14] MEDS ORDERED: Ketorolac Tromethamine 30 MG/ML VIAL ONE (11:57)
[2023-05-14] MEDS ORDERED: predniSONE 20 MG TAB ONE (11:57)
[2023-05-14] MEDS ORDERED: Morphine 4 MG/ML VIAL ONE (12:31)
[2023-05-14] MEDS ORDERED: Ondansetron PF 4 MG/2 ML Vial ONE (12:42)
== END 2023-05-14 13:49 | disposition home or self-care (01) ==
LOC: ERS 10:41
DX: G89.29 Other chronic pain (principal); M54.41 Lumbago with sciatica, right side; I10 Essential (primary) hypertension
CPT/HCPCS: 96374; 96375; J1885; J2270; J2405; J7512

== ENCOUNTER 2023-10-20 12:25 | Outpatient (CLI) | payer OTHER, MEDICAID | END 2023-10-20 12:26 | disposition home or self-care (01) | LOC: RAD 12:25 | PROVIDERS: ATTEND Physician Assistant | DX: Z47.89 Encounter for other orthopedic aftercare (principal); Z98.1 Arthrodesis status; Z98.890 Other specified postprocedural states | CPT/HCPCS: 72120 ==

== ENCOUNTER 2023-10-31 13:06 | Outpatient (CLI) | payer OTHER, MEDICAID | END 2023-10-31 13:07 | disposition home or self-care (01) | LOC: CT 13:06 → BICCT 13:07 | PROVIDERS: ATTEND Physician Assistant | DX: Z47.89 Encounter for other orthopedic aftercare (principal); Z98.1 Arthrodesis status | CPT/HCPCS: 72131 ==

== ENCOUNTER 2024-01-30 12:09 | Day surgery (SDC) | payer OTHER, MEDICAID ==
[2024-01-27 11:24] VITALS: BMI 25.8
[2024-01-30] MEDS ORDERED: PROPOFOL 0 ML ONE (12:55)
[2024-01-30] MEDS ORDERED: fentaNYL PF 100 MCG/2 ML SYRINGE ONE (12:56)
[2024-01-30] MEDS ORDERED: Dexamethasone 20 MG/5 ML VIAL ONE (13:45)
[2024-01-30] MEDS ORDERED: ePHEDrine Sulfate 50 MG/10 ML VIAL ONE (13:45)
[2024-01-30] MEDS ORDERED: Ondansetron PF 4 MG/2 ML Vial ONE (13:45)
[2024-01-30] MEDS ORDERED: Lidocaine 1% PF 5 ML VIAL ONE (13:45)
== END 2024-01-30 15:55 | disposition home or self-care (01) ==
LOC: SDC/OP 12:09
PROVIDERS: ATTEND Orthopaedic Surgery Orthopaedic Surgery of the Spine
DX: M54.10 Radiculopathy, site unspecified (principal); Z98.1 Arthrodesis status; I10 Essential (primary) hypertension; Z87.891 Personal history of nicotine dependence; Z86.73 Personal history of transient ischemic attack (TIA), and cerebral infarction without residual deficits; Z79.899 Other long term (current) drug therapy
CPT/HCPCS: 72148; 93005; 93010; J1100; J2405; J2704

== ENCOUNTER 2024-07-02 12:52 | Day surgery (SDC) | payer OTHER, MEDICAID ==
[2024-07-02] MEDS ORDERED: Lidocaine 1% PF 5 ML VIAL ONE (14:00)
[2024-07-02] MEDS ORDERED: PROPOFOL 200 MG/20 ML VIAL ONE (14:00)
== END 2024-07-02 15:35 | disposition home or self-care (01) ==
LOC: MRI 12:52
PROVIDERS: ATTEND Orthopaedic Surgery Orthopaedic Surgery of the Spine
DX: M54.50 Low back pain, unspecified (principal); B19.20 Unspecified viral hepatitis C without hepatic coma; M79.7 Fibromyalgia; Z98.1 Arthrodesis status; Z86.73 Personal history of transient ischemic attack (TIA), and cerebral infarction without residual deficits; Z90.49 Acquired absence of other specified parts of digestive tract; Z98.890 Other specified postprocedural states
CPT/HCPCS: 72148; J2704

== ENCOUNTER 2025-05-06 12:22 | Day surgery (SDC) | payer OTHER ==
[2025-05-03 11:26] VITALS: BMI 25.1
[2025-05-06] MEDS ORDERED: Lidocaine 1% PF 5 ML VIAL ONE (15:06)
[2025-05-06] MEDS ORDERED: PROPOFOL 200 MG/20 ML VIAL ONE (15:06)
== END 2025-05-06 17:10 | disposition home or self-care (01) ==
LOC: MRI 12:22
PROVIDERS: ATTEND Orthopaedic Surgery Orthopaedic Surgery of the Spine
DX: M54.16 Radiculopathy, lumbar region (principal); Z98.1 Arthrodesis status; Z90.49 Acquired absence of other specified parts of digestive tract
CPT/HCPCS: 72148; J2704; J3010